=== PATIENT | female | born 1935 | race Caucasian/White ===

== ENCOUNTER → 2021-12-21 | Outpatient (REF) | payer MEDICARE ==
[~2021-12-21] MED LIST: ASPI81TA85 PO; BISA10SU PR; BISAC5TA PO; CALC-139 PO; COUM1TAB18 PO; ELID1CRE11 TOP; ERYTHROMYCIN TOP; FISH1200 PO; FOLI1TAB86 PO; METO50TA2 PO; MOM30SS PO; MULTTAB4 PO; OCUVCAP PO; OXYC1TAB23 PO; PROL60SO SC; RAMI2.5C PO; TYLE325T5 PO; ZOLP-187 PO
== END ==
LOC: M LAB REF 18:28
PROVIDERS: ATTEND Nurse Practitioner Family
DX: D04.5 Carcinoma in situ of skin of trunk (principal)
CPT/HCPCS: 11102; 88305; G0463